=== PATIENT | female | born 1945 ===

== ENCOUNTER 2018-09-11 06:48 | Day surgery (SDC) | payer MEDICARE, MEDICAID ==
--- NOTE | 2018-09-10 11:14 | Pre-Procedure Note/Attestation ---
Pre-Procedure Note/Attestation Complete Prior to Procedure Planned Procedure: right Procedure Narrative: Cataract extraction with intraocular lens implant right eye Indications for Procedure Pre-Operative Diagnosis: Nuclear sclerotic cataract right eye Attestation I attest that I discussed the nature of the procedure; its benefits; risks and complications; and alternatives (and the risks and benefits of such alternatives ), prior to the procedure, with the patient (or the patient's legal financial sales representative). I attest that, if there was a reasonable possibility of needing a blood transfusion, the patient (or the patient's legal financial sales representative) was given the [facility] standardized written summary, pursuant to the [place] Blood Safety Act ([place] Health and Safety Code # 1645, as amended). I attest that I re-evaluated the patient just prior to the surgery and that there has been no change in the patient's H&P, except as documented below: Oliver Valdez MD Sep 10, 2018 11:14
--- NOTE | 2018-09-10 11:19 | Opthalmology H&P ---
Ophthalmology H&P H&P Chief Complaint: decreased vision in right eye HPI Vision Affects Ability to: read, manage personal affairs Past Ocular History: retinal problems - NPDR OD, HTN Retinopathy OU Exam Eye Exam: normal OU: external exam, palpebral fissure-width, marginal reflex distance, levator function, corneas, anterior chambers, fundus exam; findings: lens - cataracts NS OU Assessment/Plan Treatment Plan: cataract extraction w/ lens implant Goals of Treatment: improvement of vision, enhance quality of life Attestation Attestation The risks and benefits of the surgery as well as alternative procedures were explained to the patient in detail. Oliver Valdez MD Sep 10, 2018 11:19
[~2018-09-11] VITALS: Ht 162.6 cm; Wt 69.4 kg
[2018-09-11] VITALS (8 sets, daily range): BP systolic 132–161; BP diastolic 73–84
--- NOTE | 2018-09-11 06:43 | Anethesia Preoperative Eval ---
Anesthesia Pre-op PMH/ROS General Mallampati Score Class I : Soft palate, uvula, fauces, pillars visible Class II: Soft palate, uvula, fauces visible Class III: Soft palate, base of uvula visible Class IV: Only hard plate visible Allergies: Coded Allergies: No Known Allergies (Unverified , 09/09/18) Chanelle Chin MD Sep 11, 2018 06:43
[~2018-09-11 06:48] MED LIST: Atropine Sulfate 0.4mg/ml inj IVP PRN; DiphenhydrAMINE 50mg/ml Inj IVP PRN; Midazolam 2mg/2ml Inj IVP PRN; fentaNYL 100 mcg/2 mL IV PRN
[2018-09-11] MEDS ORDERED: Phenylephrine 10% Opth Soln 5ml RIGHT EYE SCH (07:00)
[2018-09-11] MEDS ORDERED: Pred Forte 1% Opth Susp 1ml ONE (07:00)
[2018-09-11] MEDS ORDERED: Tropicamide 1% Opth 15ml Soln RIGHT EYE SCH (07:00)
[2018-09-11] MEDS ORDERED: Proparacaine 0.5% Opth Soln 15ml RIGHT EYE ONE (07:00)
[2018-09-11] MEDS ORDERED: Cyclopentolate 1% Opth Sol 2ml RIGHT EYE SCH (07:00)
[2018-09-11] MEDS ORDERED: Polysporin Opth Oint 3.5gm ONE (07:00)
[2018-09-11] MEDS ORDERED: Akten 3.5% 1ml Btl RIGHT EYE ONE (07:00)
[2018-09-11] MEDS ORDERED: Pilocarpine 1% Opth 15ml Soln ONE (07:00)
[2018-09-11] MEDS ORDERED: Diclofenac Sod 0.1% Op Soln RIGHT EYE SCH (07:00)
[2018-09-11] MEDS ORDERED: Tetracaine 0.5% Opth 4ml Soln RIGHT EYE ONE (07:00)
[2018-09-11] MEDS ORDERED: AMLODIPINE BESYL5 MG ORAL ×2 (07:56→08:12)
[2018-09-11] MEDS ORDERED: HYDROCHLOROTHIA25 MG ORAL (08:12)
[2018-09-11] MEDS ORDERED: LOSARTAN POTAS100 MG ORAL (08:12)
[2018-09-11] MEDS ORDERED: OYSTER SHELL 21 EAC2 PO (08:12)
[2018-09-11] MEDS ORDERED: OMEPRAZOLE20 M2 ORAL (08:12)
[2018-09-11] MEDS ORDERED: EXEMESTANE25 MG PO (08:12)
[2018-09-11] MEDS ORDERED: ASPIR 8181 MG ORAL (08:12)
[2018-09-11] MEDS ORDERED: GLIPIZIDE5 G1 MC (08:12)
[2018-09-11] MEDS ORDERED: ALENDRONAT70 MG/75 M PO (08:12)
[2018-09-11] MEDS ORDERED: METFORMIN ER1000 MG PO (08:12)
[2018-09-11] MEDS ORDERED: SIMVASTATIN10 MG ORAL (08:12)
[2018-09-11] MEDS ORDERED: LANTUS SOL100 UNIT/1 SUBQ (08:12)
[2018-09-11] MEDS ORDERED: Tobramycin Op Soln 0.3% 5ml RIGHT EYE SCH (09:30)
[2018-09-11] MEDS ORDERED: Lidocaine 1% MPF 10mg/ml 5ml ONE (11:00)
[2018-09-11] MEDS ORDERED: Propofol 200mg/20ml IV ONE (11:00)
[2018-09-11] MEDS ORDERED: NS Irrig 1000ml ONE (11:00)
[2018-09-11] MEDS ORDERED: Sterile Water Irrig 1000ml IRRIG ONE (11:00)
[2018-09-11] MEDS ORDERED: LR 1000ml ONE (11:00)
[2018-09-11] MEDS ORDERED: acetaZOLAMIDE 500mg Inj ONE (11:05)
[2018-09-11] MEDS ORDERED: BSS 500ml btl ONE (11:05)
[2018-09-11] MEDS ORDERED: BSS 15ml BTL ONE (11:05)
[2018-09-11] MEDS ORDERED: Midazolam 2mg/2ml Inj ONE (11:05)
[2018-09-11] MEDS ORDERED: EPINEPHrine 1mg/1ml Amp ONE (11:05)
[2018-09-11] MEDS ORDERED: Carbachol 0.01% Op Soln 1.5ml vial ONE (11:05)
[2018-09-11] MEDS ORDERED: Lidocaine 4% Amp ONE (11:05)
[2018-09-11] MEDS ORDERED: Dexamethasone 4mg/ml vial ONE (11:05)
[2018-09-11] MEDS ORDERED: Povidone-Iodine 5% opth solution ONE (11:05)
[2018-09-11] MEDS ORDERED: Sodium Hyaluronate 14 mg/ml 0.85ml ONE (11:06)
[2018-09-11] MEDS ORDERED: LR 1000ml 1,000 ML IVLG SCH (11:09)
--- NOTE | 2018-09-11 11:09 | Anethesia Preoperative Eval ---
Anesthesia Pre-op PMH/ROS General Date of Evaluation: Sep 11, 2018 Time of Evaluation: 11:13 Anesthesiologist: David ASA Score: ASA 3 Mallampati Score Class I : Soft palate, uvula, fauces, pillars visible Class II: Soft palate, uvula, fauces visible Class III: Soft palate, base of uvula visible Class IV: Only hard plate visible Mallampati Classification: Class II Surgeon: Courtney Diagnosis: Cataract OD Surgical Procedure: Cat Ext IOL OD Social History: current smoker Family History: no anesthesia problems Allergies: Coded Allergies: No Known Allergies (Unverified , 09/09/18) Medications: see eMAR Patient NPO?: Yes Past Medical History Cardiovascular: Reports: HTN Endocrine: Reports: DM HEENT: Reports: cataract (L), cataract (R) Hematology/Immune: Reports: other - Breast CA PSxH Narrative: Cholecystectomy, Vag Hysterectomy, L Radical Mastectomy Anesthesia Pre-op Phys. Exam Physician Exam Last Vital Signs Date Time Temp Pulse Resp B/P (MAP) Pulse Ox O2 Delivery O2 Flow Rate FiO2 09/11/18 07:56 Room Air 09/11/18 07:53 98.3 84 18 161/79 99 Constitutional: NAD Neurologic: CN 2-12 intact Cardiovascular: RRR Respiratory: CTA Gastrointestinal: S/NT/ND Airway Exam Mallampati Score: Class II MO: limited ROM: limited Teeth: missing, intact Anesthesia Pre-op A/P Risk Assessment & Plan Assessment: ASA 3 Plan: GA Status Change Before Surgery: Bob Oliver MD Sep 11, 2018 11:09
[2018-09-11] MEDS ORDERED: oxyCODONE HCL/Acetaminophen 5/325mg ORAL PRN (11:15)
[2018-09-11] MEDS ORDERED: LORazepam Inj 2mg/ml 1ml IV PRN (11:15)
[2018-09-11] MEDS ORDERED: HYDROcodone/Acetamin 5/325 tab ORAL PRN (11:15)
[2018-09-11] MEDS ORDERED: Meperidine 50mg/ml Inj(FOR RIGORS ONLY) IVP PRN (11:15)
[2018-09-11] MEDS ORDERED: HYDROcodone/Acetamin 7.5/325 tab ORAL PRN (11:15)
[2018-09-11] MEDS ORDERED: Midazolam 2mg/2ml Inj IVP PRN (11:15)
[2018-09-11] MEDS ORDERED: DiphenhydrAMINE 50mg/ml Inj IVP PRN (11:15)
[2018-09-11] MEDS ORDERED: Atropine Sulfate 0.4mg/ml inj IVP PRN (11:15)
[2018-09-11] MEDS ORDERED: Ketorolac 30mg Inj IV PRN ×2 (11:15)
[2018-09-11] MEDS ORDERED: Hydromorphone 0.5mg/0.5ml inj IVP PRN (11:15)
[2018-09-11] MEDS ORDERED: Labetalol 5mg/ml 20ml vial IV PRN (11:15)
[2018-09-11] MEDS ORDERED: Metoclopramide 10mg/2ml Inj IVP PRN (11:15)
[2018-09-11] MEDS ORDERED: fentaNYL 100 mcg/2 mL IV PRN (11:15)
--- NOTE | 2018-09-11 11:22 | Immediate Post-Op Evaluation ---
Immediate Post-Op Evalulation Immediate Post-Op Evalulation Procedure: Cat Ext IOL OD Date of Evaluation: Sep 11, 2018 Time of Evaluation: 12:17 IV Fluids: 700 LR Blood Products: 0 Estimated Blood Loss: 1 Urinary Output: 0 Blood Pressure Systolic: 153 Blood Pressure Diastolic: 84 Pulse Rate: 86 Respiratory Rate: 16 O2 Sat by Pulse Oximetry: 96 Temperature (Fahrenheit): 97.6 Pain Score (1-10): 1 Nausea: No Vomiting: No Complications 0 Patient Status: awake, reacts, patent, none Hydration Status: adequate Bob Hernandez MD Sep 11, 2018 11:22
--- NOTE | 2018-09-11 11:23 | 48 Hour Post Anesthesia Eval ---
Post Anesthesia Evaluation Procedure: Cat Ext IOL OD Date of Evaluation: Sep 11, 2018 Time of Evaluation: 14:23 Blood Pressure Systolic: 155 0: 83 Pulse Rate: 78 Respiratory Rate: 18 Temperature (Fahrenheit): 97.8 O2 Sat by Pulse Oximetry: 97 Airway: patent Nausea: No Vomiting: No Pain Intensity: 1 Hydration Status: adequate Cardiopulmonary Status: Stable Mental Status/LOC: patient returned to baseline Follow-up Care/Observations: 0 Post-Anesthesia Complications: 0 Follow-up care needed: ready to discharge Bob Hernandez MD Sep 11, 2018 11:23
--- NOTE | 2018-09-14 09:43 | Brief Operative Note ---
Immediate Post Operative Note Operative Note Chief Complaint: Blurry vision Pre-op Diagnosis: Nuclear sclerotic cataract right eye Procedure: Cataract extraction with intraocular lens implant right eye Post-op Diagnosis: Pseudophakia right eye Post-op Diagnosis: same as pre-op Surgeon: Oliver Valdez MD Additional Surgeons: Bob Hernandez MD Anesthesia: MAC Specimen: none Complications: none Condition: stable Fluids: LR Estimated Blood Loss: none Drains: none Implant(s) used?: Yes - IOL-OD Oliver Valdez MD Sep 14, 2018 09:43
--- NOTE | 2018-09-14 09:58 | Operative Note - PDOC ---
Operative Note Operative Note Date of Operation/Procedure: Sep 11, 2018 Chief Complaint: Blurry vision Pre-op Diagnosis: Nuclear sclerotic cataract right eye Procedure: Cataract extraction with intraocular lens implant right eye Post-op Diagnosis: Pseudophakia right eye Post-op Diagnosis: same as pre-op Surgeon: Oliver Valdez MD Anesthesiologist: Bob Hernandez Anesthesia: MAC Specimen: none Complications: none Condition: stable Fluids: LR Estimated Blood Loss: none Drains: none Implant(s) used?: Yes - IOL OD Indications for Procedure Nuclear Sclerotic Cataract Right Eye Description of Procedure This patient has been complaining visually significant cataract in the right eye with the best corrected visual acuity of 20/80 under moderate glare conditions worse. The patient complains of difficulties with glare in performing activities of daily living and wants to manage personal affairs with comfort and accuracy and see well enough to move with safety at home and outdoors. The risks, benefits and alternatives of the procedure were discussed with the patient in the office prior to scheduling surgery. All questions from the patient were answered after the surgical procedure was explained in detail. The risks of the procedure as explained to the patient include, but are not limited to, pain, infection, bleeding, loss of vision, retinal detachment, need for further surgery, loss of lens nucleus, double vision, etc. Alternative procedures were discussed which include, to do nothing or seek a second opinion. Informed consent for this procedure was obtained from the patient. The patient was referred to a primary care physician for a cardiopulmonary clearance prior to surgery, after proper evaluation was done patient was properly scheduled for outpatient surgery. The patient was brought to the operating room where the anesthesiologist established I.V. lines and cardiac monitoring leads. Mild intravenous sedation was administered. The patient was then prepared with a 5% solution of povidone -iodine to the conjunctival fornix and lashes, and a 5% solution of povidone- iodine to the lids and periorbital skin. The patient was then draped in the usual sterile fashion. A lid speculum was then placed in the operative eye. A keratome blade was then used to create a biplanar incision into the anterior chamber. Viscoelastics was then instilled into the anterior chamber. A capsulorrhexis was then fashioned with an utrata forceps. BSS and a cannula were then used to hydrodissect and hydro delineate the lens. Paracentesis incision was made at 3 o'clock with sharp blade. The phacoemulsification unit, after being properly adjusted and tested, was then used to emulsify the nucleus. Residual cortical material was aspirated with the irrigation and aspiration unit. Healon was then instilled into the anterior chamber. The corneal wound was then enlarged to the size of the optic with the sharon keratome blade. The intraocular lens was then inspected for right power and size and thought to be satisfactory. Then the lens was gently placed in the capsular bag. Positioning within the capsular bag was confirmed by direct visualization. Optic centration was accomplished with a Sinskey hook. Viscoelastics was removed from the anterior chamber using the irrigation and aspiration unit. The corneal wound was then tested for leaks and none were found. The lid speculum were then removed. Sponge and needle counts were correct. An eye patch and shield were placed over the operative eye. The patient was taken to the recovery room in stable condition. There were no complications. The patient tolerated the procedure well. The patient was then transferred to the ambulatory surgery unit in stable and satisfactory condition , was given detailed written instructions and asked to follow up in the office the next day. Oliver Valdez MD Sep 14, 2018 09:58
== END 2018-09-11 13:10 | disposition home or self-care (01) ==
LOC: SUR 06:48
DX: H25.11 Age-related nuclear cataract, right eye (principal); Z79.84 Long term (current) use of oral hypoglycemic drugs; Z79.899 Other long term (current) drug therapy; I10 Essential (primary) hypertension; E11.9 Type 2 diabetes mellitus without complications; Z90.710 Acquired absence of both cervix and uterus; Z90.49 Acquired absence of other specified parts of digestive tract; Z90.12 Acquired absence of left breast and nipple; Z85.3 Personal history of malignant neoplasm of breast; F17.210 Nicotine dependence, cigarettes, uncomplicated
CPT/HCPCS: 66984; 82962; J0171; J1100; J2250; J2704; J3370; V2632; 94003; 94150